=== PATIENT | male | born 1950 | race Caucasian/White ===

== ENCOUNTER 2017-10-11 14:30 | Outpatient (RCR) | payer OTHER | END 2017-10-20 10:42 | disposition home or self-care (01) | LOC: MKS.ESL.PT 14:30 | DX: M17.11 Unilateral primary osteoarthritis, right knee (principal) | CPT/HCPCS: G8978-GP; G8979-GP; G8980-GP ==

== ENCOUNTER 2017-11-23 15:44 | Emergency (ER) | payer OTHER ==
[~2017-11-23] VITALS: Ht 182.9 cm; Wt 81.8 kg
[2017-11-23 15:46] VITALS: BP 156/78; TEMP 98.1
[2017-11-23] MEDS ORDERED: CALCIUM 600MG+D1 TAB PO (17:01)
[2017-11-23] MEDS ORDERED: DESYREL 50MG50 MG PO (17:02)
[2017-11-23] MEDS ORDERED: PRINIVIL5 MG PO (17:02)
[2017-11-23] MEDS ORDERED: PAXIL40 MG PO (17:02)
[2017-11-23] MEDS ORDERED: ZYRTEC5 MG PO (17:03)
[2017-11-23] MEDS ORDERED: INDERAL 10MG10 MG (17:04)
[2017-11-23] MEDS ORDERED: ASPIRIN 32325 MG/TAB PO (17:04)
[2017-11-23] MEDS ORDERED: VITAMINE200 (17:04)
[2017-11-23] MEDS ORDERED: LIPITOR 80MG80 MG PO (17:05)
[2017-11-23] MEDS ORDERED: CEPHALEXIN500 M1 PO (17:34)
[2017-11-23 17:44] VITALS: PULSE 68
== END 2017-11-23 17:44 | disposition home or self-care (01) ==
LOC: COL.ER 15:44
DX: L03.311 Cellulitis of abdominal wall (principal); I10 Essential (primary) hypertension; I25.10 Atherosclerotic heart disease of native coronary artery without angina pectoris; Z79.82 Long term (current) use of aspirin